=== PATIENT | female | born 1990 | race Caucasian/White ===

== ENCOUNTER 2022-03-04 08:37 | Outpatient (CLI) | payer OTHER, SELFPAY ==
[2022-03-04 09:29] LABS: Ur HCG Qualitative* Negative (Negative)
== END 2022-03-04 08:38 | disposition home or self-care (01) ==
PROVIDERS: PCP Family Medicine; Visit Provider Internal Medicine
DX: K92.1 Melena (principal); K62.89 Other specified diseases of anus and rectum
CPT/HCPCS: 45380; 81025; 88305; J2250; J3010

== ENCOUNTER 2022-03-08 07:05 | Day surgery (SDC) | payer OTHER, SELFPAY ==
[2022-03-08] VITALS (14 sets, daily range): BP systolic 100–125; BP diastolic 65–81; PULSE 70–95; RESP 16; TEMP 36.3–37.1; O2SAT 98–100; BMI 20.9
--- NOTE | 2022-03-08 07:33 | SUR.PREOP ---
HOME COVID, NEG
[2022-03-08 07:36] LABS: Ur HCG Qualitative* Negative (Negative)
[2022-03-08] MEDS: LACTATED RINGERS 1000 ML 1,000 ML 100 ML IV ×2 (07:40→10:30)
[2022-03-08] MEDS: SODIUM CHLORIDE 0.9 % (FLUSH) 10 ML SYRINGE IVF (07:45)
--- NOTE | 2022-03-08 08:44 | W.PM.GYNPROC ---
Procedure Note Date Seen: 03/08/22 Procedure Details: PREOPERATIVE DIAGNOSES: 1. Pelvic pain and dysmenorrhea 2. History of surgically proven endometriosis 3. History of laparoscopy x3 POSTOPERATIVE DIAGNOSES: 1. Pelvic pain and dysmenorrhea 2. History of surgically proven endometriosis 3. History of laparoscopy x3 PROCEDURE: 1. Laparoscopy 2. Lysis of adhesions 3. Fulguration of endometriosis SURGEON: Nissa COAT OPERATOR INSULATOR: Antonina Rajput. ANESTHESIA: General endotracheal. COMPLICATIONS: None. ESTIMATED BLOOD LOSS: <10 mL. FINDINGS: Adhesions to the right abdominal wall tethering the omentum to the left side. Endometriosis implants overlying both uterosacral ligaments. Surgically absent left fallopian tube. Normal uters, bilateral ovaries, and right fallopian tubs. Normal appendix. PATHOLOGY: None. DESCRIPTION OF PROCEDURE: After obtaining informed consent, the patient was taken to the operating room where general anesthesia was obtained without difficulty. She was prepared and draped in the normal sterile fashion in the low dorsal lithotomy position. A Johnston catheter was inserted into the bladder and left to gravity drainage. A medium Graves open-sided speculum was introduced into the vagina. The cervix was visualized and grasped along its anterior lip with a tenaculum. The cervix was gently dilated to a number 5 hegar dilator. A disposable uterine manipulator was placed without difficulty. The tenaculum and speculum were removed. I then changed gloves and my attention was turned to the abdomen. The inferior aspect of the umbilical fold was injected with 0.25% Marcaine plain along the line of the previous infraumbilical scar. A 12 mm transverse incision was then made along that scar using a scalpel. The subcutaneous tissues were bluntly dissected with a Heide clamp to the fascia. The fascia was grasped with 2 small Aamir clamps and elevated. The underlying peritoneum was grasped with a Heide clamp, elevated, and entered sharply with Metzenbaum scissors. Entry into the abdominal cavity was confirmed digitally and visually. An 11 mm Serrano port and sleeve placed under direct visualization through the defect. Pneumoperitoneum was achieved with insufflation of CO2 gas set to a 5 mmHg. The 5 mm laparoscope was used then to carefully inspect the abdomen and pelvis with findings noted above. Pictures were taken for documentation purposes. The patient was placed in Trendelenburg positioning. Two additional 5 mm ports were placed in the right and left lower quadrants under direct visualization after first anesthetizing the skin and fascia with 0.25% Marcaine plain. The uterus was elevated using the uterine manipulator. The bowels were gently pushed from the pelvis cephalad. The Olympus power seal was used to lyse the adhesions present on the right side, near the abdominal wall, freeing the omentum and ascending colon where they were tethered. The suction smoking pipe maker was used to remove normal physiologic fluid from pelvis, to better visualize the posterior cul-de-sac. The ureters were definitively identified visually along their courses in the pelvis. The endometriosis implants overlying the right and left uterosacral ligaments were fulgurated with bipolar electrocautery using the [employer] [facility] spatula. All instruments were then removed under direct visualization. Pneumoperitoneum was allowed to escape. The skin at all 3 port sites was closed in a subcuticular fashion with 4-0 Vicryl. LiquiBandSurigacl glue was then placed over the incisions. The uterine manipulator and Johnston catheter were removed. The cervix was examined using a speculum, and there was some active bleeding noted from the tenaculum site. This was controlled with topical application of silver nitrate. The speculum was then removed. The patient tolerated the procedure well. Sponge, lap, and needle counts were correct x2. The patient was taken to the recovery room awake and in stable condition. She received 15 mg of IV Toradol at the conclusion the procedure.
[2022-03-08] MEDS: BUPIVACAINE 0.25% 30 ML INJECTION (10:30)
--- NOTE | 2022-03-08 11:06 | PM.PROC ---
Procedure Note Time Seen by Provider: 11:06 Date Seen: 03/08/22 Date of procedure: 03/08/[address] [facility] bill your pro fee for this procedure?: Yes Procedure: patient support assistant op note: Preoperative diagnosis: 31-year-old with severe dysmenorrhea, pelvic pain and known endometriosis. Postoperative diagnosis: Same Procedure: Operative laparoscopy, lysis of adhesions, fulguration of endometriosis Operative note: I was asked to assist Dr. Ana Azar with the patient's surgery. I aided in dissection, visualization, and obtaining hemostasis. Please see Dr. Ana Azar note for complete details. Surgeon: Kati Trujillo MD
[2022-03-08] MEDS: SILVER NITRATE APPLICATOR 1 EACH STICK..EA. TOPICAL (11:12)
--- NOTE | 2022-03-08 11:26 | W.ANESCHARGE ---
Anesthesia Charges Start Date/Time Anesthesia Start Date: 03/08/22 Anesthesia Start Time: 09:53 Stop Date/Time Anesthesia Stop Date: 03/08/22 Anesthesia Stop Time: 11:25 Summary Emergency: No
[2022-03-08] MEDS: fentaNYL 100 MCG/2 ML inj 50 MCG IVP ×3 (11:36→12:30)
--- NOTE | 2022-03-08 11:56 | W.ANESCHARGE ---
Anesthesia Charges Start Date/Time Anesthesia Start Date: 03/08/22 Anesthesia Start Time: 09:53 Stop Date/Time Anesthesia Stop Date: 03/08/22 Anesthesia Stop Time: 11:25 Summary Emergency: No
[2022-03-08] MEDS: OXYCODONE 5 MG TABLET PO (12:16)
== END 2022-03-08 13:23 | disposition home or self-care (01) ==
PROVIDERS: PCP Family Medicine; Visit Provider Obstetrics & Gynecology
PROC: (CPT 49320; principal; 2022-03-08 08:15)
DX: N80.3C3 Endometriosis of bilateral uterosacral ligament(s), unspecified depth (principal); R10.2 Pelvic and perineal pain; N94.6 Dysmenorrhea, unspecified
CPT/HCPCS: 58662; 00840; 81025; A9270; J0131; J0330; J1100; J1200; J1885; J2250; J2405; J2704; J3010; J3490; J7120